=== PATIENT | female | born 1980 | race Caucasian/White ===

== ENCOUNTER 2016-12-21 16:00 | Emergency (ER) | payer BC, OTHER ==
[~2016-12-21 16:00] MED LIST: ADVA100A; CYCL-36 PO; IBUP-238 PO
[2016-12-21 16:02] VITALS: BP 138/69; PULSE 97; RESP 16; TEMP 98.6; O2SAT 98
[2016-12-21] MEDS ORDERED: ADVA100A INH (17:15)
--- NOTE | 2016-12-21 17:56 | PD ---
HPI Chief Complaint: Related Problem Time Seen by Provider: 17:09 Travel History International Travel<30 days: No Contact w/Intl Traveler<30days: No Traveled to known affect area: No History of Present Illness HPI So 36-year-old woman who presents to the emergency department complaining of light red vaginal bleeding starting today. She is about 11-12 weeks . She is not sure last menstrual period. She had seen her talent advisor previously and had an ultrasound to confirm IUP. She is not sure of her blood type but states that she did not require shots because of her blood type in her previous . This is her second . Appropriate was full term and uncomplicated. She is not having any pain or cramping. She otherwise has been feeling generally well and healthy. History Past Medical History Medical History: Denies Significant Hx Social History Tobacco Use: No Allergies-Medications (Allergen,Severity, Reaction): Coded Allergies: No Known Allergies (Unverified , 12/21/16) Reported Meds & Prescriptions Reported Meds & Active Scripts Active Reported + Complete Multi 18-0.8 & 290 mg ( Mv & Min W/Fe Prot Gasca) 18 Mg Iron-800 Mcg-290 Mg-225 Mg Sigifredo 1 Tab PO DAILY Proventil Hfa 6.7 GM Inh (Albuterol Sulfate) 90 Mcg/Act Aer 1 Puff INH Q4-6H PRN Advair Diskus Inh (Fluticasone-Salmeterol Inh) 100-50 Mcg/Blist Aer 1 Puff INH DAILY PRN Rinse mouth after use. Review of Systems Except as stated in HPI: all other systems reviewed are Neg Physical Exam Narrative GENERAL: Well-appearing 36-year-old woman, no acute distress. SKIN: Focused skin assessment warm/dry. HEAD: Atraumatic. Normocephalic. EYES: Pupils equal and round. No scleral icterus. No injection or drainage. ENT: No nasal bleeding or discharge. Mucous membranes pink and moist. NECK: Trachea midline. No JVD. CARDIOVASCULAR: Regular rate and rhythm. No murmur appreciated. RESPIRATORY: No accessory muscle use. Clear to auscultation. Breath sounds equal bilaterally. GASTROINTESTINAL: Abdomen soft, non-tender, nondistended. Hepatic and splenic margins not palpable. MUSCULOSKELETAL: No obvious deformities. No clubbing. No cyanosis. No edema. PRESSURE VESSEL INSPECTOR: Normal external female genitalia. Some dark brown vaginal discharge in the vaginal vault. No active bleeding. Normal-appearing cervix. Uterus minimally enlarged. Minimal cervical motion tenderness. Data Data Last Documented VS Vital Signs Date Time Temp Pulse Resp B/P (MAP) Pulse Ox O2 Delivery O2 Flow Rate FiO2 12/21/16 16:02 98.6 97 16 138/69 (92) 98 Orders Orders Ed Poc Ultrasound (12/21/16 ) Urinalysis - C+S If Indicated (12/21/16 17:19) Gc And Chlamydia Pcr (12/21/16 17:19) Wet Prep Profile (12/21/16 17:19) Complete Rh (12/21/16 17:23) Beta Hcg (Quant/Titer) (12/21/16 17:50) Us Pelvis (Ques Pr/Ect)W Trans (12/21/16 ) Labs Laboratory Tests Test 12/21/16 17:22 12/21/16 17:40 Urine Color COLORLESS Urine Turbidity CLEAR Urine pH 6.5 Urine Specific [place] 1.001 Urine Protein NEG mg/dL Urine Glucose (UA) NEG mg/dL Urine Ketones NEG mg/dL Urine Occult Blood SMALL Urine Nitrite NEG Urine Bilirubin NEG Urine Urobilinogen LESS THAN 2.0 MG/DL Urine Leukocyte Esterase NEG Urine Squamous Epithelial Cells <1 /hpf Urine Bacteria RARE /hpf Microscopic Urinalysis Comment CULT NOT INDICATED Clue Cells (Wet Prep) NONE SEEN Vaginal Trichomonas (Wet Prep) NONE SEEN Vaginal Yeast (Wet Prep) NONE SEEN Human Chorionic Gonadotropin, Quant [id number] MIU/ML MDM Medical Decision Making Medical Screen Exam Complete: Yes Emergency Medical Condition: Yes Interpretation(s) LABS: [place] [address] NEGATIVE Pelvic ultrasound: Gestational sac with the characteristic of 7 week 2 day but no point in a fight, small right ovarian cyst. Differential Diagnosis Threatened AB, ectopic, discharge, cervicitis, UTI, other Narrative Course Medical decision making INITIAL: 36-year-old woman presents to the emergency Department complains of vaginal bleeding, approximately 11-12 weeks . Looks well. Benign exam. Attempted bedside ultrasound was unable to obtain real use. Does appear to be an intrauterine but unable to get adequate views for measurement. We'll hydrate patient to fill the bladder, give formal ultrasound , check Rh and hCG. FINAL: 36-year-old with threatened AB. Possible and memory on in . Recommend close follow-up with OB/talent advisor. Procedures Procedure Narrative Point of care ultrasound: Attempted 20. Ultrasound but unable to obtain satisfactory disease. Formal ultrasound ordered. Diagnosis Primary Impression: Threatened Additional Instructions: Follow-up with your hydraulic billet maker or talent advisor in the next 3-5 days. Return to the emergency department for any new or worsening symptoms. Med/Other Pt SpecificInfo: No Change to Meds Disposition: 01 DISCHARGE HOME Condition: Stable Candido Medina MD Dec 21, 2016 17:56
--- NOTE | 2016-12-21 17:56 | PD ---
HPI Chief Complaint: Related Problem Time Seen by Provider: 17:09 Travel History International Travel<30 days: No Contact w/Intl Traveler<30days: No Traveled to known affect area: No History of Present Illness HPI So 36-year-old woman who presents to the emergency department complaining of light red vaginal bleeding starting today. She is about 11-12 weeks . She is not sure last menstrual period. She had seen her c software engineer previously and had an ultrasound to confirm IUP. She is not sure of her blood type but states that she did not require shots because of her blood type in her previous . This is her second . Appropriate was full term and uncomplicated. She is not having any pain or cramping. She otherwise has been feeling generally well and healthy. History Past Medical History Medical History: Denies Significant Hx Social History Tobacco Use: No Allergies-Medications (Allergen,Severity, Reaction): Coded Allergies: No Known Allergies (Unverified , 12/21/16) Reported Meds & Prescriptions Reported Meds & Active Scripts Active Reported + Complete Multi 18-0.8 & 290 mg ( Mv & Min W/Fe Prot Gasca) 18 Mg Iron-800 Mcg-290 Mg-225 Mg Sigifredo 1 Tab PO DAILY Proventil Hfa 6.7 GM Inh (Albuterol Sulfate) 90 Mcg/Act Aer 1 Puff INH Q4-6H PRN Advair Diskus Inh (Fluticasone-Salmeterol Inh) 100-50 Mcg/Blist Aer 1 Puff INH DAILY PRN Rinse mouth after use. Review of Systems Except as stated in HPI: all other systems reviewed are Neg Physical Exam Narrative GENERAL: Well-appearing 36-year-old woman, no acute distress. SKIN: Focused skin assessment warm/dry. HEAD: Atraumatic. Normocephalic. EYES: Pupils equal and round. No scleral icterus. No injection or drainage. ENT: No nasal bleeding or discharge. Mucous membranes pink and moist. NECK: Trachea midline. No JVD. CARDIOVASCULAR: Regular rate and rhythm. No murmur appreciated. RESPIRATORY: No accessory muscle use. Clear to auscultation. Breath sounds equal bilaterally. GASTROINTESTINAL: Abdomen soft, non-tender, nondistended. Hepatic and splenic margins not palpable. MUSCULOSKELETAL: No obvious deformities. No clubbing. No cyanosis. No edema. CRYSTALIZER TENDER: Normal external female genitalia. Some dark brown vaginal discharge in the vaginal vault. No active bleeding. Normal-appearing cervix. Uterus minimally enlarged. Minimal cervical motion tenderness. Data Data Last Documented VS Vital Signs Date Time Temp Pulse Resp B/P (MAP) Pulse Ox O2 Delivery O2 Flow Rate FiO2 12/21/16 16:02 98.6 97 16 138/69 (92) 98 Orders Orders Ed Poc Ultrasound (12/21/16 ) Urinalysis - C+S If Indicated (12/21/16 17:19) Gc And Chlamydia Pcr (12/21/16 17:19) Wet Prep Profile (12/21/16 17:19) Complete Rh (12/21/16 17:23) Beta Hcg (Quant/Titer) (12/21/16 17:50) Us Pelvis (Ques Pr/Ect)W Trans (12/21/16 ) Labs Laboratory Tests Test 12/21/16 17:22 12/21/16 17:40 Urine Color COLORLESS Urine Turbidity CLEAR Urine pH 6.5 Urine Specific [place] 1.001 Urine Protein NEG mg/dL Urine Glucose (UA) NEG mg/dL Urine Ketones NEG mg/dL Urine Occult Blood SMALL Urine Nitrite NEG Urine Bilirubin NEG Urine Urobilinogen LESS THAN 2.0 MG/DL Urine Leukocyte Esterase NEG Urine Squamous Epithelial Cells <1 /hpf Urine Bacteria RARE /hpf Microscopic Urinalysis Comment CULT NOT INDICATED Clue Cells (Wet Prep) NONE SEEN Vaginal Trichomonas (Wet Prep) NONE SEEN Vaginal Yeast (Wet Prep) NONE SEEN Human Chorionic Gonadotropin, Quant [id number] MIU/ML MDM Medical Decision Making Medical Screen Exam Complete: Yes Emergency Medical Condition: Yes Interpretation(s) LABS: [place] [address] NEGATIVE Pelvic ultrasound: Gestational sac with the characteristic of 7 week 2 day but no point in a fight, small right ovarian cyst. Differential Diagnosis Threatened AB, ectopic, discharge, cervicitis, UTI, other Narrative Course Medical decision making INITIAL: 36-year-old woman presents to the emergency Department complains of vaginal bleeding, approximately 11-12 weeks . Looks well. Benign exam. Attempted bedside ultrasound was unable to obtain real use. Does appear to be an intrauterine but unable to get adequate views for measurement. We'll hydrate patient to fill the bladder, give formal ultrasound , check Rh and hCG. FINAL: 36-year-old with threatened AB. Possible and memory on in . Recommend close follow-up with OB/c software engineer. Procedures Procedure Narrative Point of care ultrasound: Attempted 20. Ultrasound but unable to obtain satisfactory disease. Formal ultrasound ordered. Diagnosis Primary Impression: Threatened Additional Instructions: Follow-up with your hvac field service technician or c software engineer in the next 3-5 days. Return to the emergency department for any new or worsening symptoms. Med/Other Pt SpecificInfo: No Change to Meds Disposition: 01 DISCHARGE HOME Condition: Stable Candido Medina MD Dec 21, 2016 17:56
--- NOTE | 2016-12-21 17:56 | PD ---
HPI Chief Complaint: Related Problem Time Seen by Provider: 17:09 Travel History International Travel<30 days: No Contact w/Intl Traveler<30days: No Traveled to known affect area: No History of Present Illness HPI So 36-year-old woman who presents to the emergency department complaining of light red vaginal bleeding starting today. She is about 11-12 weeks . She is not sure last menstrual period. She had seen her paring machine operator previously and had an ultrasound to confirm IUP. She is not sure of her blood type but states that she did not require shots because of her blood type in her previous . This is her second . Appropriate was full term and uncomplicated. She is not having any pain or cramping. She otherwise has been feeling generally well and healthy. History Past Medical History Medical History: Denies Significant Hx Social History Tobacco Use: No Allergies-Medications (Allergen,Severity, Reaction): Coded Allergies: No Known Allergies (Unverified , 12/21/16) Reported Meds & Prescriptions Reported Meds & Active Scripts Active Reported + Complete Multi 18-0.8 & 290 mg ( Mv & Min W/Fe Prot Gasca) 18 Mg Iron-800 Mcg-290 Mg-225 Mg Sigifredo 1 Tab PO DAILY Proventil Hfa 6.7 GM Inh (Albuterol Sulfate) 90 Mcg/Act Aer 1 Puff INH Q4-6H PRN Advair Diskus Inh (Fluticasone-Salmeterol Inh) 100-50 Mcg/Blist Aer 1 Puff INH DAILY PRN Rinse mouth after use. Review of Systems Except as stated in HPI: all other systems reviewed are Neg Physical Exam Narrative GENERAL: Well-appearing 36-year-old woman, no acute distress. SKIN: Focused skin assessment warm/dry. HEAD: Atraumatic. Normocephalic. EYES: Pupils equal and round. No scleral icterus. No injection or drainage. ENT: No nasal bleeding or discharge. Mucous membranes pink and moist. NECK: Trachea midline. No JVD. CARDIOVASCULAR: Regular rate and rhythm. No murmur appreciated. RESPIRATORY: No accessory muscle use. Clear to auscultation. Breath sounds equal bilaterally. GASTROINTESTINAL: Abdomen soft, non-tender, nondistended. Hepatic and splenic margins not palpable. MUSCULOSKELETAL: No obvious deformities. No clubbing. No cyanosis. No edema. REGION MANAGER: Normal external female genitalia. Some dark brown vaginal discharge in the vaginal vault. No active bleeding. Normal-appearing cervix. Uterus minimally enlarged. Minimal cervical motion tenderness. Data Data Last Documented VS Vital Signs Date Time Temp Pulse Resp B/P (MAP) Pulse Ox O2 Delivery O2 Flow Rate FiO2 12/21/16 16:02 98.6 97 16 138/69 (92) 98 Orders Orders Ed Poc Ultrasound (12/21/16 ) Urinalysis - C+S If Indicated (12/21/16 17:19) Gc And Chlamydia Pcr (12/21/16 17:19) Wet Prep Profile (12/21/16 17:19) Complete Rh (12/21/16 17:23) Beta Hcg (Quant/Titer) (12/21/16 17:50) Us Pelvis (Ques Pr/Ect)W Trans (12/21/16 ) Labs Laboratory Tests Test 12/21/16 17:22 12/21/16 17:40 Urine Color COLORLESS Urine Turbidity CLEAR Urine pH 6.5 Urine Specific [place] 1.001 Urine Protein NEG mg/dL Urine Glucose (UA) NEG mg/dL Urine Ketones NEG mg/dL Urine Occult Blood SMALL Urine Nitrite NEG Urine Bilirubin NEG Urine Urobilinogen LESS THAN 2.0 MG/DL Urine Leukocyte Esterase NEG Urine Squamous Epithelial Cells <1 /hpf Urine Bacteria RARE /hpf Microscopic Urinalysis Comment CULT NOT INDICATED Clue Cells (Wet Prep) NONE SEEN Vaginal Trichomonas (Wet Prep) NONE SEEN Vaginal Yeast (Wet Prep) NONE SEEN Human Chorionic Gonadotropin, Quant [id number] MIU/ML MDM Medical Decision Making Medical Screen Exam Complete: Yes Emergency Medical Condition: Yes Interpretation(s) LABS: [place] [address] NEGATIVE Pelvic ultrasound: Gestational sac with the characteristic of 7 week 2 day but no point in a fight, small right ovarian cyst. Differential Diagnosis Threatened AB, ectopic, discharge, cervicitis, UTI, other Narrative Course Medical decision making INITIAL: 36-year-old woman presents to the emergency Department complains of vaginal bleeding, approximately 11-12 weeks . Looks well. Benign exam. Attempted bedside ultrasound was unable to obtain real use. Does appear to be an intrauterine but unable to get adequate views for measurement. We'll hydrate patient to fill the bladder, give formal ultrasound , check Rh and hCG. FINAL: 36-year-old with threatened AB. Possible and memory on in . Recommend close follow-up with OB/paring machine operator. Procedures Procedure Narrative Point of care ultrasound: Attempted 20. Ultrasound but unable to obtain satisfactory disease. Formal ultrasound ordered. Diagnosis Primary Impression: Threatened Additional Instructions: Follow-up with your billing clerk or paring machine operator in the next 3-5 days. Return to the emergency department for any new or worsening symptoms. Med/Other Pt SpecificInfo: No Change to Meds Disposition: 01 DISCHARGE HOME Condition: Stable Candido Medina MD Dec 21, 2016 17:56
[2016-12-21 17:58] LABS: BACTERIA, URINE RARE /hpf; BILIRUBIN, URINE NEG (NEG); BLOOD, URINE SMALL (NEG); GLUCOSE,URINE NEG (NEG); KETONE, URINE NEG (NEG); NITRITE,URINE NEG (NEG); PH, URINE 6.5 (5.0-8.5); SQUAMOUS EPITHELIAL CELL URINE <1 /hpf (0-5); URINE COLOR COLORLESS (YELLW/STRAW); URINE LEUKOCYTE ESTERASE NEG (NEG)
[2016-12-21] MEDS ORDERED: PREN1PAK9 PO (19:03)
[2016-12-21] MEDS ORDERED: ALBU6.7H INH (19:03)
--- NOTE | 2016-12-21 19:58 | RADRPT ---
EXAM DATE/TIME: 12/21/2016 19:19 [facility] COMPARISON: No previous studies available for comparison. INDICATIONS : Vaginal bleeding with . LAB(S): Beta-hC MEDICAL HISTORY : . Vaginal bleeding with . SURGICAL HISTORY : ENCOUNTER: Initial ACUITY: 2 days PAIN SCORE: 6/10 LOCATION: Bilateral pelvis MEASUREMENTS: UTERUS: 11.0 x 6.6 x 5.7 cm ENDOMETRIAL STRIPE: 7 mm RIGHT OVARY: 3.5 x 1.9 x 2.3 cm LEFT OVARY: 2.9 x 2.1 x 1.3 cm FREE FLUID: No FINDINGS: Gestational sac is present but no pole visualized. Yolk sac is noted. 1 cm cyst right ovary. Le ft ovary unremarkable. Endometrial stripe thickness 7 mm. CONCLUSION: Gestational sac size would be characteristic of a 7 week 2 day but no pole identified . Small right ovarian cyst. Se Marrero MD on December 21, 2016 at 19: 54 Board Certified Radiologist. This report was verified electronically.
== END 2016-12-21 20:44 | disposition home or self-care (01) ==
LOC: NEPD 16:00
DX: O20.0 Threatened abortion (principal); Z3A.12 12 weeks gestation of pregnancy
CPT/HCPCS: 76700; 76817; 81001; 84702; 86901; 87210; 87491; 87591; 99284